=== PATIENT | female | born 1955 | race Caucasian/White ===

== ENCOUNTER → 2018-03-05 | Outpatient (CLI) | payer OTHER ==
[~2018-03-05] MED LIST: LIDOCAINE-MPF 1%, 2ML ONE; OMNIPAQUE 300 MG/ML, 10ML VIAL ONE; ROPivacaine/PF 0.2%, 10 ML ONE; TRIAMCINOLONE ACETONIDE 40 MG/ML, 1ML ONE
== END ==
LOC: RAD 14:51
PROVIDERS: ATTEND Nurse Practitioner
DX: M19.071 Primary osteoarthritis, right ankle and foot (principal); M12.871 Other specific arthropathies, not elsewhere classified, right ankle and foot; G89.29 Other chronic pain
CPT/HCPCS: 76000; J2795; J3301; J3490; Q9967